=== PATIENT | male | born 1995 | race Caucasian/White ===

== ENCOUNTER 2018-04-02 22:44 | Emergency (ER) | payer MEDICAID | END 2018-04-03 03:22 | disposition home or self-care (01) | LOC: FTE 22:44 | DX: S69.91XA Unspecified injury of right wrist, hand and finger(s), initial encounter (principal); W25.XXXA Contact with sharp glass, initial encounter; Y92.9 Unspecified place or not applicable | CPT/HCPCS: 29125; 73130-RT; 99283-25 ==